=== PATIENT | male | born 1975 | race Caucasian/White ===

== ENCOUNTER 2022-01-28 22:49 | Emergency (ER) | payer BC ==
[2022-01-28] MEDS ORDERED: diphenhydrAMINE 50 MG/ML SDV IVPUSH ONE (23:42)
[2022-01-28] MEDS ORDERED: Haloperidol Lactate 5 MG/ML SDV IM ONE (23:42)
[2022-01-28] MEDS ORDERED: Dextrose 5%-Lactated Ringers 1,000 ML IV SCH (23:45)
[2022-01-28] MEDS ORDERED: Pantoprazole 80 MG in Sodium Chloride 0.9% 10 ML IVPUSH ONE (23:45)
[2022-01-29 00:32] LABS: BLOOD UREA NITROGEN,BUN 8 mg/dL (7.0-18.0); CARBON DIOXIDE,CO2 28.6 mmol/L (21.0-32.0); CHLORIDE,CL 100 mmol/L (98-107); GLUCOSE RANDOM 122 mg/dL (74-106); LIPASE 51 U/L (73-393); SODIUM,NA 139 mmol/L (136-148)
== END 2022-01-29 02:04 | disposition home or self-care (01) ==
LOC: MW.ED 22:49
DX: R10.30 Lower abdominal pain, unspecified (principal); R11.2 Nausea with vomiting, unspecified
CPT/HCPCS: 36415; 80053; 83690; 83735; 85025; 93005; 96361; 96372; 96374; 96375; 99284; 99284-25; C9113; J1200; J1630; J3490; J7121